=== PATIENT | male | born 1975 | race Hispanic/Latino ===

== ENCOUNTER 2018-08-26 15:56 | Inpatient (IN) | payer SELFPAY ==
[2018-08-26] MEDS ORDERED: NACL 0.9% 1000 ML 1,000 ML IV ONE ×3 (16:34→22:10)
[2018-08-26] MEDS ORDERED: ASPIRIN PO ONE (16:34)
[2018-08-26] MEDS ORDERED: SUBLIMAZE IV ONE (16:34)
[2018-08-26] MEDS ORDERED: ZOFRAN IV ONE ×2 (16:34→20:46)
--- NOTE | 2018-08-26 16:38 | Emergency Department Report ---
HPI - General Chief Complaint: Hyperglycemia Time Seen by Provider: 08/26/18 16:27 - HPI HPI: Room 4 The patient is a 42-year-old male presenting with chief complaint of hyperglycemia and chest pain. The patient states 5 days ago he was bitten by an insect because it all over body. The patient's days ago she became elevated he's been unable to control it despite being compliant with his medication. Patient developed a subjective fever 2 days ago and then today sided chest pain, so something is pushing on his chest. Patient admits to shortness of breath, nausea/vomiting and diaphoresis. The patient currently gives his chest pain a score of 6/10. The patient states his last stress test occurred over 5 years ago Location: [See above] Duration: [See above] Quality: Pushing Severity: [See above] Modifying factors: [see above] Context: [see above] Mode of transportation: [not driving] ED Past Medical Hx - Past Medical History Previous Medical History?: Yes Hx Diabetes: Yes (IDDM) - Surgical History Past Surgical History?: Yes Additional Surgical History: LUE - Family History Family history: no significant - Social History Smoking Status: Current Every Day Smoker (1/2 pack per day) Substance Use Type: None (denies illicit drug use) - Medications Home Medications: Home Medications Medication Instructions Recorded Confirmed Last Taken Type Clopidogrel [Plavix] 75 mg PO QDAY #30 tablet 01/25/13 01/15/18 Unknown Rx Rosuvastatin (Nf) [Crestor] 10 mg PO QHS #30 tablet 01/25/13 01/15/18 Unknown Rx Insulin NPH/Regular [NovoLIN 70/30] 15 unit SUB-Q BIDDIAB #1 vial 01/14/18 01/15/18 01/14/18 22:00 Rx Pregabalin [Lyrica] 75 mg PO BID #60 capsule 01/14/18 01/15/18 Unknown Rx Linezolid [Zyvox] 600 mg PO BID #28 tablet 01/19/18 Unknown Rx ED Review of Systems ROS: Stated complaint: BS/CP Other details as noted in HPI Constitutional: diaphoresis Eyes: denies: eye pain ENT: denies: throat pain Respiratory: shortness of breath Cardiovascular: chest pain Endocrine: no symptoms reported Gastrointestinal: nausea, vomiting Genitourinary: denies: dysuria Musculoskeletal: denies: back pain Neurological: denies: headache Physical Exam - Physical Exam Physical Exam: GENERAL: The patient is well-developed well-nourished male lying on stretcher holding emesis bag appearing to be in mild discomfort. [] HEENT: Normocephalic. Atraumatic. Extraocular motions are intact. Patient has moist mucous membranes. NECK: Supple. Trachea midline CHEST/LUNGS: Clear to auscultation. There is no respiratory distress noted. HEART/CARDIOVASCULAR: Regular. There is no tachycardia. There is no gallop rub or murmur. ABDOMEN: Abdomen is soft, nontender. Patient has normal bowel sounds. There is no abdominal distention. SKIN: There is no rash. There is no edema. There is no diaphoresis. NEURO: The patient is awake, alert, and oriented. The patient is cooperative. The patient has normal speech MUSCULOSKELETAL: There is no evidence of acute injury. ED Medical Decision Making - Lab Data Result diagrams: 08/26/18 17:05 08/26/18 17:05 Laboratory Tests 08/26/18 08/26/18 08/26/18 17:05 17:05 17:05 WBC 13.7 H RBC 5.30 H Hgb 16.6 H Hct 50.9 H MCV 96 H MCH 31 MCHC 33 RDW 14.6 Plt Count 346 Add Manual Diff Complete Total Counted 100 Seg Neutrophils % Airway Controller Seg Neuts % (Manual) 97.0 H Band Neutrophils % 0 Lymphocytes % (Manual) 2.0 L Reactive Lymphs % (Man) 0 Monocytes % (Manual) 1.0 Eosinophils % (Manual) 0 Basophils % (Manual) 0 Metamyelocytes % 0 Myelocytes % 0 Promyelocytes % 0 Blast Cells % 0 Nucleated RBC % Not Reportable Seg Neutrophils # Man 13.3 H Band Neutrophils # 0.0 Lymphocytes # (Manual) 0.3 L Abs React Lymphs (Man) 0.0 Monocytes # (Manual) 0.1 Eosinophils # (Manual) 0.0 Basophils # (Manual) 0.0 Metamyelocytes # 0.0 Myelocytes # 0.0 Promyelocytes # 0.0 Blast Cells # 0.0 WBC Morphology Not Reportable Hypersegmented Neuts Not Reportable Hyposegmented Neuts Not Reportable Hypogranular Neuts Not Reportable Smudge Cells Not Reportable Toxic Granulation Not Reportable Toxic Vacuolation Not Reportable Dohle Bodies Not Reportable Pelger-Huet Anomaly Not Reportable Leelee Rods Not Reportable Platelet Estimate Appears normal Clumped Platelets Not Reportable Plt Clumps, EDTA Not Reportable Large Platelets Not Reportable Giant Platelets Not Reportable Platelet Satelliting Not Reportable Plt Morphology Comment Not Reportable RBC Morphology Normal Dimorphic RBCs Not Reportable Polychromasia Not Reportable Hypochromasia Not Reportable Poikilocytosis Not Reportable Anisocytosis Not Reportable Microcytosis Not Reportable Macrocytosis Not Reportable Spherocytes Not Reportable Pappenheimer Bodies Not Reportable Sickle Cells Not Reportable Target Cells Not Reportable Tear Drop Cells Not Reportable Ovalocytes Not Reportable Helmet Cells Not Reportable [place] Bodies Not Reportable [place] Rings Not Reportable Chetan Cells Not Reportable Bite Cells Not Reportable Crenated Cell Not Reportable Elliptocytes Not Reportable Acanthocytes (Spur) Not Reportable Rouleaux Not Reportable Hemoglobin C Crystals Not Reportable Schistocytes Not Reportable Malaria parasites Not Reportable Drake Bodies Not Reportable Hem Pathologist Commnt No VBG pH 7.190 L* Sodium 125 L Potassium 7.0 H* Chloride 79.6 L Carbon Dioxide 9 L* Anion Gap 43 BUN 56 H Creatinine 1.9 H Estimated GFR 39 BUN/Creatinine Ratio 29 Glucose 753 H* POC Glucose Calcium 9.7 Total Bilirubin 0.50 AST 19 ALT 15 Alkaline Phosphatase 173 H Total Creatine Kinase 59 CK-MB (CK-2) 3.2 CK-MB (CK-2) Rel Index 5.4 H Troponin T < 0.010 Total Protein 8.6 H Albumin 4.3 Albumin/Globulin Ratio 1.0 Lipase 42 08/26/18 17:12 WBC RBC Hgb Hct MCV MCH MCHC RDW Plt Count Add Manual Diff Total Counted Seg Neutrophils % Seg Neuts % (Manual) Band Neutrophils % Lymphocytes % (Manual) Reactive Lymphs % (Man) Monocytes % (Manual) Eosinophils % (Manual) Basophils % (Manual) Metamyelocytes % Myelocytes % Promyelocytes % Blast Cells % Nucleated RBC % Seg Neutrophils # Man Band Neutrophils # Lymphocytes # (Manual) Abs React Lymphs (Man) Monocytes # (Manual) Eosinophils # (Manual) Basophils # (Manual) Metamyelocytes # Myelocytes # Promyelocytes # Blast Cells # WBC Morphology Hypersegmented Neuts Hyposegmented Neuts Hypogranular Neuts Smudge Cells Toxic Granulation Toxic Vacuolation Dohle Bodies Pelger-Huet Anomaly Leelee Rods Platelet Estimate Clumped Platelets Plt Clumps, EDTA Large Platelets Giant Platelets Platelet Satelliting Plt Morphology Comment RBC Morphology Dimorphic RBCs Polychromasia Hypochromasia Poikilocytosis Anisocytosis Microcytosis Macrocytosis Spherocytes Pappenheimer Bodies Sickle Cells Target Cells Tear Drop Cells Ovalocytes Helmet Cells [place] Bodies [place] Rings Chetan Cells Bite Cells Crenated Cell Elliptocytes Acanthocytes (Spur) Rouleaux Hemoglobin C Crystals Schistocytes Malaria parasites Drake Bodies Hem Pathologist Commnt VBG pH Sodium Potassium Chloride Carbon Dioxide Anion Gap BUN Creatinine Estimated GFR BUN/Creatinine Ratio Glucose POC Glucose > 500 H Calcium Total Bilirubin AST ALT Alkaline Phosphatase Total Creatine Kinase CK-MB (CK-2) CK-MB (CK-2) Rel Index Troponin T Total Protein Albumin Albumin/Globulin Ratio Lipase - Radiology Data Radiology results: image reviewed (chest x-ray) interpreted by me: Chest x-ray-no focal infiltrates, no pneumothorax - Differential Diagnosis DKA, ACS, pericarditis Critical care attestation.: If time is entered above; I have spent that time in minutes in the direct care of this critically ill patient, excluding procedure time. ED Disposition Clinical Impression: Chest pain, DKA (diabetic ketoacidoses) Disposition: OP ADMIT IP TO THIS HOSP Is pt being admited?: Yes Does the pt Need Aspirin: No Condition: Fair Instructions: Chest Pain (ED), Diabetic Ketoacidosis (ED) Referrals: CHADD CAMPBELL MD [Primary Care Provider] - 3-5 Days Time of Disposition: 18:04 (hospitalist notified (Dr Hodge))
[2018-08-26 17:18] LABS: Hematocrit 50.9 % (35.5-45.6); Hemoglobin 16.6 gm/dl (11.8-15.2); Mean Corpuscular HGB Conc 33 % (32-34); Mean Corpuscular Volume 96 fl (84-94); Platelet Count 346 K/mm3 (140-440); Red Cell Distribution Width 14.6 % (13.2-15.2)
[2018-08-26 17:48] LABS: Creatine Kinase MB 3.2 ng/mL (0.0-4.0)
[2018-08-26 17:49] LABS: Alanine Aminotransferase 15 units/L (7-56); Albumin 4.3 g/dL (3.9-5); BUN/Creatinine Ratio 29; Blood Urea Nitrogen 56 mg/dL (9-20); Calcium 9.7 mg/dL (8.4-10.2); Hemolysis Index 61
[2018-08-26 18:01] LABS: Basophils % (Manual) 0 % (0.0-1.8); Eosinophils % (Manual) 0 % (0.0-4.3); Total Cells Counted 100
[2018-08-26] MEDS ORDERED: D50W (25GM) Syringe IV PRN (18:01)
[2018-08-26 18:02] LABS: RBC Morphology Normal
--- NOTE | 2018-08-26 18:09 | XRay Report ---
PROCEDURE: XR CHEST 1V AP TECHNIQUE: Chest radiograph single view. HISTORY: chest pain COMPARISONS: X-ray chest and CT angiogram chest dated January 15, 2018. . FINDINGS: There is no evidence of focal infiltrate, pneumothorax or pleural fluid collection. The cardiac silhouette is normal size. The thoracic aorta is unremarkable. The bony structures are notable for dextrocurvature of the thoracic spine. IMPRESSION: 1. No evidence of an acute pulmonary process. This document is electronically signed by Kalyani Anaya MD., August 26 2018 06:07:15 PM ET
[2018-08-26 19:35] LABS: Bilirubin,Urine NEG (Negative); Blood,Urine NEG (Negative); Color,Urine Straw (Yellow); Mucus,Urine FEW /HPF; Protein,Urine <15 mg/dL mg/dL (Negative); RBC,Urine < 1.0 /HPF (0.0-6.0); Urobilinogen,Urine < 2.0 mg/dL (<2.0); WBC,Urine < 1.0 /HPF (0.0-6.0)
[2018-08-26 20:03] LABS: Calcium 9.3 mg/dL (8.4-10.2)
[2018-08-26] MEDS ORDERED: REGLAN IV ONE (20:50)
[2018-08-26] MEDS ORDERED: REGLAN ONE (20:53)
[2018-08-26] MEDS: HumuLIN R 100 UNITS in NACL 0.9% 99 ML IV SCH (21:01)
[2018-08-26] MEDS ORDERED: PERCOCET 5/325 PO PRN (21:27)
[2018-08-26] MEDS ORDERED: TYLENOL PO PRN (21:27)
[2018-08-26] MEDS ORDERED: MORPHINE IV PRN (21:27)
[2018-08-26] MEDS ORDERED: SODIUM CHLORIDE FLUSH SYRINGE 10 ML IV PRN (21:27)
[2018-08-26] MEDS ORDERED: ZOFRAN IV PRN ×2 (21:27→23:18)
[2018-08-26] MEDS ORDERED: NACL 0.9% 1000 ML 1,000 ML ONE (21:34)
[2018-08-26 21:37] LABS: Calcium 9.2 mg/dL (8.4-10.2)
[2018-08-26] MEDS ORDERED: NACL 0.9% 1000 ML 2,000 ML IV ONE (21:46)
[2018-08-26] MEDS ORDERED: NACL 0.9% 1000 ML 1,000 ML IV SCH (22:00)
[2018-08-26] MEDS: SODIUM CHLORIDE FLUSH SYRINGE 10 ML IV SCH (22:08)
[2018-08-26 22:35] LABS: Calcium 8.8 mg/dL (8.4-10.2)
--- NOTE | 2018-08-26 22:56 | History and Physical Report ---
History of Present Illness Date of examination: 08/26/18 Date of admission: 08/26/18 21:27 Chief complaint: High blood sugar and chest pain History of present illness: Patient is a 42-year-old male with history of IDDM who presented with high blood glucose. Patient stated that today, his glucometer started reading very high glucose level, which he could not control despite taking his medications. He also complained of few hours history of left-sided chest pain. He described it as sharp in character, rated 7-8/10, nonradiating and constant in duration. Pain is worse with deep breaths and no known relieving factors. He has associated shortness of breath, palpitation, diaphoresis, cough productive of greenish sputum, fever without chills, nausea with vomiting times multiple episodes, headaches, lightheadedness and generalized weakness. No leg swelling, orthopnea, PND, syncope or loss of consciousness. His last stress test was about 5 years ago which was normal. Past History Past Medical History: diabetes, hypertension, other (diabetic neuropathy) Past Surgical History: Other (right arm surgery) Social history: smoking (patient has 10 years history of cigarette smoking. He currently smokes a pack every few days. He denies alcohol or illicit drug use) Family history: CAD (father had heart attack in his 60s), diabetes (aunt), hypertension (father) Medications and Allergies Allergies Allergy/AdvReac Type Severity Reaction Status Date / Time No Known Allergies Allergy Unverified 01/11/18 02:12 Home Medications Medication Instructions Recorded Confirmed Last Taken Type Insulin Detemir [Levemir VIAL] 0 unit SQ BID 08/26/18 08/26/18 Unknown History Insulin Glargine [Lantus] 40 unit SUB-Q BID 08/26/18 08/26/18 Unknown History Insulin Regular, Human [Humulin R] 1 dose SQ ACHS 08/26/18 08/26/18 Unknown History Active Meds: Active Medications Acetaminophen (Tylenol) 650 mg PO Q4H PRN PRN Reason: Pain MILD(1-3)/Fever >100.5/CHE Aspirin (Aspirin) 325 mg PO QDAY VIELKA Dextrose (D50w (25gm) Syringe) 0 ml IV ONCE PRN PRN Reason: Hypoglycemia Heparin Sodium (Porcine) (Heparin) 5,000 unit SUB-Q Q8HR VIELKA Insulin Human Regular 100 (units/ Sodium Chloride) 100 mls @ 7 mls/hr IV TITR VIELKA; Protocol Last Titration: 08/26/18 22:55 Dose: 11 units/hr, 11 mls/hr Documented by: Sodium Chloride (Nacl 0.9% 1000 Ml) 1,000 mls @ 250 mls/hr IV DIRECT VIELKA Sodium Chloride (Nacl 0.9% 1000 Ml) 2,000 mls @ 999 mls/hr IV ONCE ONE Stop: 08/26/18 23:46 Last Admin: 08/26/18 22:01 Dose: 999 mls/hr Documented by: Sodium Chloride (Nacl 0.9% 1000 Ml) 1,000 mls @ 999 mls/hr IV BOLUS ONE Stop: 08/26/18 23:10 Last Admin: 08/26/18 22:56 Dose: 999 mls/hr Documented by: Sodium Chloride (Nacl 0.9% 1000 Ml) 1,000 mls @ 999 mls/hr IV BOLUS ONE Stop: 08/26/18 23:10 Morphine Sulfate (Morphine) 2 mg IV Q4H PRN PRN Reason: Pain , Severe (7-10) Ondansetron HCl (Zofran) 4 mg IV Q8H PRN PRN Reason: Nausea And Vomiting Oxycodone/Acetaminophen (Percocet 5/325) 1 tab PO Q6H PRN PRN Reason: Pain, Moderate (4-6) Sodium Chloride (Sodium Chloride Flush Syringe 10 Ml) 10 ml IV BID VIELKA Last Admin: 08/26/18 22:08 Dose: 10 ml Documented by: Sodium Chloride (Sodium Chloride Flush Syringe 10 Ml) 10 ml IV PRN PRN PRN Reason: LINE FLUSH Review of Systems All systems: negative (except as documented in the HPI, 14 point system reviewed were negative) Exam - Constitutional Vitals: Temp Pulse Resp BP Pulse Ox 97.9 F 121 H 16 104/38 100 08/26/18 19:15 08/26/18 22:30 08/26/18 22:30 08/26/18 22:30 08/26/18 22:30 General appearance: Present: no acute distress, well-nourished - EENT Eyes: Present: PERRL, EOM intact ENT: hearing intact, clear oral mucosa - Neck Neck: Present: supple, normal ROM - Respiratory Respiratory effort: normal Respiratory: bilateral: CTA - Cardiovascular Rhythm: regular (with tachycardia) Heart Sounds: Present: S1 & S2. Absent: rub, click - Extremities Extremities: pulses symmetrical, No edema Peripheral Pulses: within normal limits - Abdominal General gastrointestinal: Present: soft, tender (RLQ, LLQ and epigastrium), non- distended, normal bowel sounds Male genitourinary: Present: deferred - Integumentary Integumentary: Present: clear, warm, dry - Musculoskeletal Musculoskeletal: gait normal, strength equal bilaterally - Psychiatric Psychiatric: appropriate mood/affect, intact judgment & insight - Neurologic Neurologic: CNII-XII intact, moves all extremities Results - Labs CBC & Chem 7: 08/26/18 17:05 08/26/18 21:51 Labs: Laboratory Last Values WBC 13.7 K/mm3 (4.5-11.0) H 08/26/18 17:05 RBC 5.30 M/mm3 (3.65-5.03) H 08/26/18 17:05 Hgb 16.6 gm/dl (11.8-15.2) H 08/26/18 17:05 Hct 50.9 % (35.5-45.6) H 08/26/18 17:05 MCV 96 fl (84-94) H 08/26/18 17:05 MCH 31 pg (28-32) 08/26/18 17:05 MCHC 33 % (32-34) 08/26/18 17:05 RDW 14.6 % (13.2-15.2) 08/26/18 17:05 Plt Count 346 K/mm3 (140-440) 08/26/18 17:05 Add Manual Diff Complete 08/26/18 17:05 Total Counted 100 08/26/18 17:05 Seg Neutrophils % Recruitment Advertising Manager 08/26/18 17:05 Seg Neuts % (Manual) 97.0 % (40.0-70.0) H 08/26/18 17:05 0 % 08/26/18 17:05 2.0 % (13.4-35.0) L 08/26/18 17:05 Reactive Lymphs % (Man) 0 % 08/26/18 17:05 1.0 % (0.0-7.3) 08/26/18 17:05 0 % (0.0-4.3) 08/26/18 17:05 0 % (0.0-1.8) 08/26/18 17:05 0 % 08/26/18 17:05 0 % 08/26/18 17:05 0 % 08/26/18 17:05 0 % 08/26/18 17:05 Nucleated RBC % Not Reportable 08/26/18 17:05 Seg Neutrophils # Man 13.3 K/mm3 (1.8-7.7) H 08/26/18 17:05 Band Neutrophils # 0.0 K/mm3 08/26/18 17:05 0.3 K/mm3 (1.2-5.4) L 08/26/18 17:05 Abs React Lymphs (Man) 0.0 K/mm3 08/26/18 17:05 0.1 K/mm3 (0.0-0.8) 08/26/18 17:05 0.0 K/mm3 (0.0-0.4) 08/26/18 17:05 0.0 K/mm3 (0.0-0.1) 08/26/18 17:05 0.0 K/mm3 08/26/18 17:05 0.0 K/mm3 08/26/18 17:05 0.0 K/mm3 08/26/18 17:05 Blast Cells # 0.0 K/mm3 08/26/18 17:05 WBC Morphology Not Reportable 08/26/18 17:05 Hypersegmented Neuts Not Reportable 08/26/18 17:05 Hyposegmented Neuts Not Reportable 08/26/18 17:05 Hypogranular Neuts Not Reportable 08/26/18 17:05 Not Reportable 08/26/18 17:05 Not Reportable 08/26/18 17:05 Not Reportable 08/26/18 17:05 Not Reportable 08/26/18 17:05 Not Reportable 08/26/18 17:05 Not Reportable 08/26/18 17:05 Appears normal 08/26/18 17:05 Not Reportable 08/26/18 17:05 Plt Clumps, EDTA Not Reportable 08/26/18 17:05 Not Reportable 08/26/18 17:05 Not Reportable 08/26/18 17:05 Not Reportable 08/26/18 17:05 Plt Morphology Comment Not Reportable 08/26/18 17:05 RBC Morphology Normal 08/26/18 17:05 Dimorphic RBCs Not Reportable 08/26/18 17:05 Not Reportable 08/26/18 17:05 Not Reportable 08/26/18 17:05 Not Reportable 08/26/18 17:05 Not Reportable 08/26/18 17:05 Not Reportable 08/26/18 17:05 Not Reportable 08/26/18 17:05 Not Reportable 08/26/18 17:05 Not Reportable 08/26/18 17:05 Not Reportable 08/26/18 17:05 Not Reportable 08/26/18 17:05 Not Reportable 08/26/18 17:05 Not Reportable 08/26/18 17:05 Not Reportable 08/26/18 17:05 Not Reportable 08/26/18 17:05 Not Reportable 08/26/18 17:05 Not Reportable 08/26/18 17:05 Not Reportable 08/26/18 17:05 Not Reportable 08/26/18 17:05 Not Reportable 08/26/18 17:05 Acanthocytes (Spur) Not Reportable 08/26/18 17:05 Rouleaux Not Reportable 08/26/18 17:05 Not Reportable 08/26/18 17:05 Not Reportable 08/26/18 17:05 Not Reportable 08/26/18 17:05 Not Reportable 08/26/18 17:05 Hem Pathologist Commnt No 08/26/18 17:05 VBG pH 7.190 (7.320-7.420) L* 08/26/18 17:05 Sodium 124 mmol/L (137-145) L 08/26/18 21:51 Potassium 7.1 mmol/L (3.6-5.0) H* 08/26/18 21:51 Chloride 79.7 mmol/L (98-107) L 08/26/18 21:51 Carbon Dioxide 7 mmol/L (22-30) L* 08/26/18 21:51 44 mmol/L 08/26/18 21:51 BUN 60 mg/dL (9-20) H 08/26/18 21:51 2.2 mg/dL (0.8-1.5) H 08/26/18 21:51 Estimated GFR 33 ml/min 08/26/18 21:51 27 % 08/26/18 21:51 Glucose 842 mg/dL (75-100) H* 08/26/18 21:51 POC Glucose > 500 (70-105) H 08/26/18 22:13 Calcium 8.8 mg/dL (8.4-10.2) 08/26/18 21:51 Phosphorus 6.60 mg/dL (2.5-4.5) H 08/26/18 19:17 Magnesium 2.50 mg/dL (1.7-2.3) H 08/26/18 19:17 0.50 mg/dL (0.1-1.2) 08/26/18 17:05 AST 19 units/L (5-40) 08/26/18 17:05 ALT 15 units/L (7-56) 08/26/18 17:05 173 units/L (35-129) H 08/26/18 17:05 59 units/L (55-170) 08/26/18 17:05 CK-MB (CK-2) 3.2 ng/mL (0.0-4.0) 08/26/18 17:05 CK-MB (CK-2) Rel Index 5.4 (0-4) H 08/26/18 17:05 < 0.010 ng/mL (0.00-0.029) 08/26/18 17:05 8.6 g/dL (6.3-8.2) H 08/26/18 17:05 4.3 g/dL (3.9-5) 08/26/18 17:05 1.0 % 08/26/18 17:05 42 units/L (13-60) 08/26/18 17:05 Straw (Yellow) 08/26/18 18:50 Clear (Clear) 08/26/18 18:50 5.0 (5.0-7.0) 08/26/18 18:50 Ur Specific [place] 1.021 (1.003-1.030) 08/26/18 18:50 <15 mg/dl mg/dL (Negative) 08/26/18 18:50 >=500 mg/dL (Negative) 08/26/18 18:50 80 mg/dL (Negative) 08/26/18 18:50 Neg (Negative) 08/26/18 18:50 Neg (Negative) 08/26/18 18:50 Neg (Negative) 08/26/18 18:50 < 2.0 mg/dL (<2.0) 08/26/18 18:50 Ur Leukocyte Esterase Neg (Negative) 08/26/18 18:50 < 1.0 /HPF (0.0-6.0) 08/26/18 18:50 < 1.0 /HPF (0.0-6.0) 08/26/18 18:50 Few /HPF 08/26/18 18:50 Assessment and Plan Assessment and plan: DKA -Admit to the ICU on DKA protocol Severe hyperkalemia -Will do EKG -On aggressive IV fluid, will monitor potassium level -We'll consult nephrology if no improvement WILMER -Likely vasomotor nephropathy secondary to dehydration -On IV fluid, will monitor creatinine level Chest pain, rule out ACS -On chest pain pathway -Consider stress test when DKA resolves Hypotension -On IV fluid, will monitor blood pressure Leukocytosis with elevated H&H -Likely hemoconcentration due to dehydration -No evidence of acute infection -On IV fluid, will monitor levels Intractable nausea and vomiting -On antiemetics and IV fluid DVT prophylaxis with heparin Disposition: I spent 45 minutes providing critical care to this seriously ill patient who requires frequent reassessments of his metabolic profile and cardiovascular status.
[2018-08-26] MEDS ORDERED: PHENERGAN PR PRN (23:18)
[2018-08-27 01:42] LABS: Calcium 8.5 mg/dL (8.4-10.2)
[2018-08-27] MEDS: D5/0.45NS 1,000 ML IV SCH ×2 (05:08→13:05)
[2018-08-27] MEDS: HEPARIN SUB-Q SCH ×2 (06:04→14:01)
[2018-08-27 08:19] LABS: Calcium 8.6 mg/dL (8.4-10.2)
--- NOTE | 2018-08-27 09:07 | Progress Note ---
Assessment and Plan Assessment and plan: DKA -Admitted to the ICU on DKA protocol -Continuye to monitor serial BMP, anion gap Severe hyperkalemia Now resolved WILMER -Likely vasomotor nephropathy secondary to dehydration -On IV fluid, will monitor creatinine level Chest pain, rule out ACS -On chest pain pathway -Will do stress test when DKA resolves Hypotension -On IV fluid, will monitor blood pressure SIRS Leukocytosis with elevated H&H -Likely hemoconcentration due to dehydration -No evidence of acute infection -On IV fluid, will monitor levels Intractable nausea and vomiting -On antiemetics and IV fluid DVT prophylaxis with heparin History Interval history: Patient with DKA, on Insulin drip, iv fluids Asking about food Hospitalist Physical - Physical exam Narrative exam: Gen: Not in acute distress, lying in bed, HEENT: Normocephalic, atraumatic Neck: supple, no JVD Heart: S1 and S2 reg, no murmurs, rubs or gallop Lungs: Clear, no crackles, no wheeze Abd: soft, non tender, non distended, normal BS Ext: No edema, no clubbing, no cyanosis, Neuro: Drowsy, moves all ext, non focal Psych:Normal mood - Constitutional Vitals: Temp Pulse Resp BP Pulse Ox 98.9 F 87 16 116/67 97 08/27/18 08:00 08/27/18 08:00 08/27/18 08:00 08/27/18 08:00 08/27/18 08:00 General appearance: Present: no acute distress, well-nourished Results - Labs CBC & Chem 7: 08/26/18 17:05 08/27/18 09:16 Labs: Laboratory Last Values WBC 13.7 K/mm3 (4.5-11.0) H 08/26/18 17:05 RBC 5.30 M/mm3 (3.65-5.03) H 08/26/18 17:05 Hgb 16.6 gm/dl (11.8-15.2) H 08/26/18 17:05 Hct 50.9 % (35.5-45.6) H 08/26/18 17:05 MCV 96 fl (84-94) H 08/26/18 17:05 MCH 31 pg (28-32) 08/26/18 17:05 MCHC 33 % (32-34) 08/26/18 17:05 RDW 14.6 % (13.2-15.2) 08/26/18 17:05 Plt Count 346 K/mm3 (140-440) 08/26/18 17:05 Add Manual Diff Complete 08/26/18 17:05 Total Counted 100 08/26/18 17:05 Seg Neutrophils % Scheduling Coordinator 08/26/18 17:05 Seg Neuts % (Manual) 97.0 % (40.0-70.0) H 08/26/18 17:05 0 % 08/26/18 17:05 2.0 % (13.4-35.0) L 08/26/18 17:05 Reactive Lymphs % (Man) 0 % 08/26/18 17:05 1.0 % (0.0-7.3) 08/26/18 17:05 0 % (0.0-4.3) 08/26/18 17:05 0 % (0.0-1.8) 08/26/18 17:05 0 % 08/26/18 17:05 0 % 08/26/18 17:05 0 % 08/26/18 17:05 0 % 08/26/18 17:05 Nucleated RBC % Not Reportable 08/26/18 17:05 Seg Neutrophils # Man 13.3 K/mm3 (1.8-7.7) H 08/26/18 17:05 Band Neutrophils # 0.0 K/mm3 08/26/18 17:05 0.3 K/mm3 (1.2-5.4) L 08/26/18 17:05 Abs React Lymphs (Man) 0.0 K/mm3 08/26/18 17:05 0.1 K/mm3 (0.0-0.8) 08/26/18 17:05 0.0 K/mm3 (0.0-0.4) 08/26/18 17:05 0.0 K/mm3 (0.0-0.1) 08/26/18 17:05 0.0 K/mm3 08/26/18 17:05 0.0 K/mm3 08/26/18 17:05 0.0 K/mm3 08/26/18 17:05 Blast Cells # 0.0 K/mm3 08/26/18 17:05 WBC Morphology Not Reportable 08/26/18 17:05 Hypersegmented Neuts Not Reportable 08/26/18 17:05 Hyposegmented Neuts Not Reportable 08/26/18 17:05 Hypogranular Neuts Not Reportable 08/26/18 17:05 Not Reportable 08/26/18 17:05 Not Reportable 08/26/18 17:05 Not Reportable 08/26/18 17:05 Not Reportable 08/26/18 17:05 Not Reportable 08/26/18 17:05 Not Reportable 08/26/18 17:05 Appears normal 08/26/18 17:05 Not Reportable 08/26/18 17:05 Plt Clumps, EDTA Not Reportable 08/26/18 17:05 Not Reportable 08/26/18 17:05 Not Reportable 08/26/18 17:05 Not Reportable 08/26/18 17:05 Plt Morphology Comment Not Reportable 08/26/18 17:05 RBC Morphology Normal 08/26/18 17:05 Dimorphic RBCs Not Reportable 08/26/18 17:05 Not Reportable 08/26/18 17:05 Not Reportable 08/26/18 17:05 Not Reportable 08/26/18 17:05 Not Reportable 08/26/18 17:05 Not Reportable 08/26/18 17:05 Not Reportable 08/26/18 17:05 Not Reportable 08/26/18 17:05 Not Reportable 08/26/18 17:05 Not Reportable 08/26/18 17:05 Not Reportable 08/26/18 17:05 Not Reportable 08/26/18 17:05 Not Reportable 08/26/18 17:05 Not Reportable 08/26/18 17:05 Not Reportable 08/26/18 17:05 Not Reportable 08/26/18 17:05 Not Reportable 08/26/18 17:05 Not Reportable 08/26/18 17:05 Not Reportable 08/26/18 17:05 Not Reportable 08/26/18 17:05 Acanthocytes (Spur) Not Reportable 08/26/18 17:05 Rouleaux Not Reportable 08/26/18 17:05 Not Reportable 08/26/18 17:05 Not Reportable 08/26/18 17:05 Not Reportable 08/26/18 17:05 Not Reportable 08/26/18 17:05 Hem Pathologist Commnt No 08/26/18 17:05 VBG pH 7.190 (7.320-7.420) L* 08/26/18 17:05 Sodium 144 mmol/L (137-145) 08/27/18 07:35 Potassium 4.4 mmol/L (3.6-5.0) 08/27/18 07:35 Chloride 60.0 mmol/L (98-107) L 08/27/18 07:35 Carbon Dioxide 20 mmol/L (22-30) L D 08/27/18 07:35 68 mmol/L 08/27/18 07:35 BUN 46 mg/dL (9-20) H 08/27/18 07:35 1.6 mg/dL (0.8-1.5) H 08/27/18 07:35 Estimated GFR 47 ml/min 08/27/18 07:35 29 % 08/27/18 07:35 Glucose 116 mg/dL (75-100) H 08/27/18 07:35 POC Glucose 132 (70-105) H 08/27/18 08:30 Calcium 8.6 mg/dL (8.4-10.2) 08/27/18 07:35 Phosphorus 6.60 mg/dL (2.5-4.5) H 08/26/18 19:17 Magnesium 2.50 mg/dL (1.7-2.3) H 08/26/18 19:17 0.50 mg/dL (0.1-1.2) 08/26/18 17:05 AST 19 units/L (5-40) 08/26/18 17:05 ALT 15 units/L (7-56) 08/26/18 17:05 173 units/L (35-129) H 08/26/18 17:05 59 units/L (55-170) 08/26/18 17:05 CK-MB (CK-2) 3.2 ng/mL (0.0-4.0) 08/26/18 17:05 CK-MB (CK-2) Rel Index 5.4 (0-4) H 08/26/18 17:05 < 0.010 ng/mL (0.00-0.029) 08/27/18 07:35 8.6 g/dL (6.3-8.2) H 08/26/18 17:05 4.3 g/dL (3.9-5) 08/26/18 17:05 1.0 % 08/26/18 17:05 42 units/L (13-60) 08/26/18 17:05 Straw (Yellow) 08/26/18 18:50 Clear (Clear) 08/26/18 18:50 5.0 (5.0-7.0) 08/26/18 18:50 Ur Specific [place] 1.021 (1.003-1.030) 08/26/18 18:50 <15 mg/dl mg/dL (Negative) 08/26/18 18:50 >=500 mg/dL (Negative) 08/26/18 18:50 80 mg/dL (Negative) 08/26/18 18:50 Neg (Negative) 08/26/18 18:50 Neg (Negative) 08/26/18 18:50 Neg (Negative) 08/26/18 18:50 < 2.0 mg/dL (<2.0) 08/26/18 18:50 Ur Leukocyte Esterase Neg (Negative) 08/26/18 18:50 < 1.0 /HPF (0.0-6.0) 08/26/18 18:50 < 1.0 /HPF (0.0-6.0) 08/26/18 18:50 Few /HPF 08/26/18 18:50 Active Medications - Current Medications Current Medications: Generic Name Dose Route Start Last Admin Trade Name Nuraq PRN Reason Stop Dose Admin Acetaminophen 650 mg 08/26/18 21:27 Tylenol PO Q4H PRN Pain MILD(1-3)/Fever >100.5/CHE Aspirin 325 mg 08/27/18 10:00 Aspirin PO QDAY VIELKA Dextrose 0 ml 08/26/18 18:01 D50w (25gm) Syringe IV ONCE PRN Hypoglycemia Heparin Sodium (Porcine) 5,000 unit 08/27/18 06:00 08/27/18 06:04 Heparin SUB-Q 5,000 unit Q8HR VIELKA Administration Insulin Human Regular 100 100 mls @ 7 mls/hr 08/26/18 19:00 08/27/18 08:00 units/ Sodium Chloride IV 2 units/hr TITR VIELKA 2 mls/hr Titration Protocol 7 UNITS/HR Dextrose/Sodium Chloride 1,000 mls @ 150 mls/hr 08/27/18 05:00 08/27/18 05:08 D5/0.45ns IV 150 mls/hr DIRECT VIELKA Administration Morphine Sulfate 2 mg 08/26/18 21:27 Morphine IV Q4H PRN Pain , Severe (7-10) Ondansetron HCl 4 mg 08/26/18 23:18 Zofran IV Q4H PRN Nausea And Vomiting Oxycodone/Acetaminophen 1 tab 08/26/18 21:27 Percocet 5/325 PO Q6H PRN Pain, Moderate (4-6) Promethazine HCl 25 mg 08/26/18 23:18 Phenergan [place] Q6H PRN Nausea And Vomiting Sodium Chloride 10 ml 08/26/18 22:00 08/26/18 22:08 Sodium Chloride Flush Syringe 10 Ml IV 10 ml BID VIELKA Administration Sodium Chloride 10 ml 08/26/18 21:27 Sodium Chloride Flush Syringe 10 Ml IV PRN PRN LINE FLUSH
[2018-08-27] MEDS: ASPIRIN PO SCH (09:39)
[2018-08-27] MEDS ORDERED: LOVENOX SUB-Q SCH (10:00)
[2018-08-27 10:02] LABS: Calcium 8.4 mg/dL (8.4-10.2)
[2018-08-27] MEDS: SODIUM CHLORIDE FLUSH SYRINGE 10 ML IV SCH (10:43)
[2018-08-27] MEDS: HumuLIN R 100 UNITS in NACL 0.9% 99 ML IV SCH (10:44)
--- NOTE | 2018-08-27 13:42 | Consultation ---
History of Present Illness - Reason for Consult Consult date: 08/27/18 DKA Requesting physician: BONNIE CEE - History of Present Illness 42 y/o male admitted with DKA. BS greater than 800 on admit. Anion gap now is 17. Due for next draw at 14:00 Past History Past Medical History: diabetes, hypertension, other (diabetic neuropathy) Past Surgical History: Other (right arm surgery) Social history: smoking (patient has 10 years history of cigarette smoking. He currently smokes a pack every few days. He denies alcohol or illicit drug use) Family history: CAD (father had heart attack in his 60s), diabetes (aunt), hypertension (father) Medications and Allergies Allergies Allergy/AdvReac Type Severity Reaction Status Date / Time No Known Allergies Allergy Unverified 01/11/18 02:12 Home Medications Medication Instructions Recorded Confirmed Last Taken Type Insulin Detemir [Levemir VIAL] 0 unit SQ BID 08/26/18 08/26/18 Unknown History Insulin Glargine [Lantus] 40 unit SUB-Q BID 08/26/18 08/26/18 Unknown History Insulin Regular, Human [Humulin R] 1 dose SQ ACHS 08/26/18 08/26/18 Unknown History Active Meds: Active Medications Acetaminophen (Tylenol) 650 mg PO Q4H PRN PRN Reason: Pain MILD(1-3)/Fever >100.5/CHE Aspirin (Aspirin) 325 mg PO QDAY VIELKA Last Admin: 08/27/18 09:39 Dose: 325 mg Documented by: Dextrose (D50w (25gm) Syringe) 0 ml IV ONCE PRN PRN Reason: Hypoglycemia Heparin Sodium (Porcine) (Heparin) 5,000 unit SUB-Q Q8HR VIELKA Last Admin: 08/27/18 06:04 Dose: 5,000 unit Documented by: Insulin Human Regular 100 (units/ Sodium Chloride) 100 mls @ 7 mls/hr IV TITR VIELKA; Protocol Last Titration: 08/27/18 12:37 Dose: 3 units/hr, 3 mls/hr Documented by: Dextrose/Sodium Chloride (D5/0.45ns) 1,000 mls @ 150 mls/hr IV DIRECT VIELKA Last Admin: 08/27/18 13:05 Dose: 150 mls/hr Documented by: Morphine Sulfate (Morphine) 2 mg IV Q4H PRN PRN Reason: Pain , Severe (7-10) Ondansetron HCl (Zofran) 4 mg IV Q4H PRN PRN Reason: Nausea And Vomiting Oxycodone/Acetaminophen (Percocet 5/325) 1 tab PO Q6H PRN PRN Reason: Pain, Moderate (4-6) Last Admin: 08/27/18 09:39 Dose: 1 tab Documented by: Promethazine HCl (Phenergan) 25 mg MI Q6H PRN PRN Reason: Nausea And Vomiting Sodium Chloride (Sodium Chloride Flush Syringe 10 Ml) 10 ml IV BID VIELKA Last Admin: 08/27/18 10:43 Dose: 10 ml Documented by: Sodium Chloride (Sodium Chloride Flush Syringe 10 Ml) 10 ml IV PRN PRN PRN Reason: LINE FLUSH Review of Systems All systems: negative Exam - Constitutional Vitals: Temp Pulse Resp BP Pulse Ox 98.8 F 72 13 112/57 100 08/27/18 12:00 08/27/18 13:10 08/27/18 13:10 08/27/18 13:10 08/27/18 13:10 General appearance: Present: no acute distress, well-nourished - EENT Eyes: Present: PERRL, EOM intact ENT: hearing intact, clear oral mucosa - Neck Neck: Present: supple, normal ROM - Respiratory Respiratory effort: normal Respiratory: bilateral: CTA Results - Labs CBC & Chem 7: 08/26/18 17:05 08/27/18 09:16 Labs: Abnormal lab results 08/26/18 08/26/18 08/26/18 Range/Units 17:05 17:05 17:05 WBC 13.7 H (4.5-11.0) K/mm3 RBC 5.30 H (3.65-5.03) M/mm3 Hgb 16.6 H (11.8-15.2) gm/dl Hct 50.9 H (35.5-45.6) % MCV 96 H (84-94) fl Seg Neuts % (Manual) 97.0 H (40.0-70.0) % Lymphocytes % (Manual) 2.0 L (13.4-35.0) % Seg Neutrophils # Man 13.3 H (1.8-7.7) K/mm3 Lymphocytes # (Manual) 0.3 L (1.2-5.4) K/mm3 VBG pH 7.190 L* (7.320-7.420) Sodium 125 L (137-145) mmol/L Potassium 7.0 H* (3.6-5.0) mmol/L Chloride 79.6 L (98-107) mmol/L Carbon Dioxide 9 L* (22-30) mmol/L BUN 56 H (9-20) mg/dL Creatinine 1.9 H (0.8-1.5) mg/dL Glucose 753 H* (75-100) mg/dL POC Glucose (70-105) Phosphorus (2.5-4.5) mg/dL Magnesium (1.7-2.3) mg/dL Alkaline Phosphatase 173 H (35-129) units/L CK-MB (CK-2) Rel Index 5.4 H (0-4) Total Protein 8.6 H (6.3-8.2) g/dL 08/26/18 08/26/18 08/26/18 Range/Units 17:12 19:17 19:17 WBC (4.5-11.0) K/mm3 RBC (3.65-5.03) M/mm3 Hgb (11.8-15.2) gm/dl Hct (35.5-45.6) % MCV (84-94) fl Seg Neuts % (Manual) (40.0-70.0) % Lymphocytes % (Manual) (13.4-35.0) % Seg Neutrophils # Man (1.8-7.7) K/mm3 Lymphocytes # (Manual) (1.2-5.4) K/mm3 VBG pH (7.320-7.420) Sodium 126 L (137-145) mmol/L Potassium 6.6 H* (3.6-5.0) mmol/L Chloride 81.1 L (98-107) mmol/L Carbon Dioxide 7 L* (22-30) mmol/L BUN 59 H (9-20) mg/dL Creatinine 2.0 H (0.8-1.5) mg/dL Glucose 803 H* (75-100) mg/dL POC Glucose > 500 H (70-105) Phosphorus 6.60 H (2.5-4.5) mg/dL Magnesium 2.50 H (1.7-2.3) mg/dL Alkaline Phosphatase (35-129) units/L CK-MB (CK-2) Rel Index (0-4) Total Protein (6.3-8.2) g/dL 08/26/18 08/26/18 08/26/18 Range/Units 20:48 21:51 22:13 WBC (4.5-11.0) K/mm3 RBC (3.65-5.03) M/mm3 Hgb (11.8-15.2) gm/dl Hct (35.5-45.6) % MCV (84-94) fl Seg Neuts % (Manual) (40.0-70.0) % Lymphocytes % (Manual) (13.4-35.0) % Seg Neutrophils # Man (1.8-7.7) K/mm3 Lymphocytes # (Manual) (1.2-5.4) K/mm3 VBG pH (7.320-7.420) Sodium 129 L 124 L (137-145) mmol/L Potassium 7.1 H* 7.1 H* (3.6-5.0) mmol/L Chloride 83.5 L 79.7 L (98-107) mmol/L Carbon Dioxide 7 L* 7 L* (22-30) mmol/L BUN 61 H 60 H (9-20) mg/dL Creatinine 2.1 H 2.2 H (0.8-1.5) mg/dL Glucose 819 H* 842 H* (75-100) mg/dL POC Glucose > 500 H (70-105) Phosphorus (2.5-4.5) mg/dL Magnesium (1.7-2.3) mg/dL Alkaline Phosphatase (35-129) units/L CK-MB (CK-2) Rel Index (0-4) Total Protein (6.3-8.2) g/dL 08/26/18 08/27/18 08/27/18 Range/Units 22:46 00:05 01:06 WBC (4.5-11.0) K/mm3 RBC (3.65-5.03) M/mm3 Hgb (11.8-15.2) gm/dl Hct (35.5-45.6) % MCV (84-94) fl Seg Neuts % (Manual) (40.0-70.0) % Lymphocytes % (Manual) (13.4-35.0) % Seg Neutrophils # Man (1.8-7.7) K/mm3 Lymphocytes # (Manual) (1.2-5.4) K/mm3 VBG pH (7.320-7.420) Sodium (137-145) mmol/L Potassium (3.6-5.0) mmol/L Chloride (98-107) mmol/L Carbon Dioxide 12 L (22-30) mmol/L BUN 56 H (9-20) mg/dL Creatinine 2.1 H (0.8-1.5) mg/dL Glucose 712 H* 409 H (75-100) mg/dL POC Glucose 447 H (70-105) Phosphorus (2.5-4.5) mg/dL Magnesium (1.7-2.3) mg/dL Alkaline Phosphatase (35-129) units/L CK-MB (CK-2) Rel Index (0-4) Total Protein (6.3-8.2) g/dL 08/27/18 08/27/18 08/27/18 Range/Units 01:09 02:09 03:03 WBC (4.5-11.0) K/mm3 RBC (3.65-5.03) M/mm3 Hgb (11.8-15.2) gm/dl Hct (35.5-45.6) % MCV (84-94) fl Seg Neuts % (Manual) (40.0-70.0) % Lymphocytes % (Manual) (13.4-35.0) % Seg Neutrophils # Man (1.8-7.7) K/mm3 Lymphocytes # (Manual) (1.2-5.4) K/mm3 VBG pH (7.320-7.420) Sodium (137-145) mmol/L Potassium (3.6-5.0) mmol/L Chloride (98-107) mmol/L Carbon Dioxide (22-30) mmol/L BUN (9-20) mg/dL Creatinine (0.8-1.5) mg/dL Glucose (75-100) mg/dL POC Glucose 413 H 323 H 266 H (70-105) Phosphorus (2.5-4.5) mg/dL Magnesium (1.7-2.3) mg/dL Alkaline Phosphatase (35-129) units/L CK-MB (CK-2) Rel Index (0-4) Total Protein (6.3-8.2) g/dL 08/27/18 08/27/18 08/27/18 Range/Units 04:09 05:09 06:04 WBC (4.5-11.0) K/mm3 RBC (3.65-5.03) M/mm3 Hgb (11.8-15.2) gm/dl Hct (35.5-45.6) % MCV (84-94) fl Seg Neuts % (Manual) (40.0-70.0) % Lymphocytes % (Manual) (13.4-35.0) % Seg Neutrophils # Man (1.8-7.7) K/mm3 Lymphocytes # (Manual) (1.2-5.4) K/mm3 VBG pH (7.320-7.420) Sodium (137-145) mmol/L Potassium (3.6-5.0) mmol/L Chloride (98-107) mmol/L Carbon Dioxide (22-30) mmol/L BUN (9-20) mg/dL Creatinine (0.8-1.5) mg/dL Glucose (75-100) mg/dL POC Glucose 182 H 138 H 120 H (70-105) Phosphorus (2.5-4.5) mg/dL Magnesium (1.7-2.3) mg/dL Alkaline Phosphatase (35-129) units/L CK-MB (CK-2) Rel Index (0-4) Total Protein (6.3-8.2) g/dL 08/27/18 08/27/18 08/27/18 Range/Units 07:35 08:30 09:16 WBC (4.5-11.0) K/mm3 RBC (3.65-5.03) M/mm3 Hgb (11.8-15.2) gm/dl Hct (35.5-45.6) % MCV (84-94) fl Seg Neuts % (Manual) (40.0-70.0) % Lymphocytes % (Manual) (13.4-35.0) % Seg Neutrophils # Man (1.8-7.7) K/mm3 Lymphocytes # (Manual) (1.2-5.4) K/mm3 VBG pH (7.320-7.420) Sodium (137-145) mmol/L Potassium (3.6-5.0) mmol/L Chloride 60.0 L (98-107) mmol/L Carbon Dioxide 20 L D 20 L (22-30) mmol/L BUN 46 H 43 H (9-20) mg/dL Creatinine 1.6 H 1.6 H (0.8-1.5) mg/dL Glucose 116 H 153 H (75-100) mg/dL POC Glucose 132 H (70-105) Phosphorus (2.5-4.5) mg/dL Magnesium (1.7-2.3) mg/dL Alkaline Phosphatase (35-129) units/L CK-MB (CK-2) Rel Index (0-4) Total Protein (6.3-8.2) g/dL 08/27/18 08/27/18 08/27/18 Range/Units 09:45 10:46 11:40 WBC (4.5-11.0) K/mm3 RBC (3.65-5.03) M/mm3 Hgb (11.8-15.2) gm/dl Hct (35.5-45.6) % MCV (84-94) fl Seg Neuts % (Manual) (40.0-70.0) % Lymphocytes % (Manual) (13.4-35.0) % Seg Neutrophils # Man (1.8-7.7) K/mm3 Lymphocytes # (Manual) (1.2-5.4) K/mm3 VBG pH (7.320-7.420) Sodium (137-145) mmol/L Potassium (3.6-5.0) mmol/L Chloride (98-107) mmol/L Carbon Dioxide (22-30) mmol/L BUN (9-20) mg/dL Creatinine (0.8-1.5) mg/dL Glucose (75-100) mg/dL POC Glucose 170 H 149 H 144 H (70-105) Phosphorus (2.5-4.5) mg/dL Magnesium (1.7-2.3) mg/dL Alkaline Phosphatase (35-129) units/L CK-MB (CK-2) Rel Index (0-4) Total Protein (6.3-8.2) g/dL 08/27/18 Range/Units 12:42 WBC (4.5-11.0) K/mm3 RBC (3.65-5.03) M/mm3 Hgb (11.8-15.2) gm/dl Hct (35.5-45.6) % MCV (84-94) fl Seg Neuts % (Manual) (40.0-70.0) % Lymphocytes % (Manual) (13.4-35.0) % Seg Neutrophils # Man (1.8-7.7) K/mm3 Lymphocytes # (Manual) (1.2-5.4) K/mm3 VBG pH (7.320-7.420) Sodium (137-145) mmol/L Potassium (3.6-5.0) mmol/L Chloride (98-107) mmol/L Carbon Dioxide (22-30) mmol/L BUN (9-20) mg/dL Creatinine (0.8-1.5) mg/dL Glucose (75-100) mg/dL POC Glucose 155 H (70-105) Phosphorus (2.5-4.5) mg/dL Magnesium (1.7-2.3) mg/dL Alkaline Phosphatase (35-129) units/L CK-MB (CK-2) Rel Index (0-4) Total Protein (6.3-8.2) g/dL - Imaging and Cardiology Chest x-ray: image reviewed (clear) Assessment and Plan 42 y/o male admitted with DKA 1. [place] gap is 17. Next lab draw at 1400. most likely gap will be closed. Suggest calculating total insulin and starting BID NPH 2. Feed dinner 3. Transfer out of unit once last BMP comes back. CCt 31 minutes.
[2018-08-27 15:23] LABS: Calcium 8.2 mg/dL (8.4-10.2)
[2018-08-27] MEDS ORDERED: D50W (25GM) Syringe IV PRN (15:35)
[2018-08-27] MEDS: HumaLOG SUB-Q SCH (16:28)
[2018-08-27] MEDS: NACL 0.9% 1000 ML 1,000 ML IV SCH (17:22)
[2018-08-27 19:56] LABS: BUN/Creatinine Ratio 23; Blood Urea Nitrogen 28 mg/dL (9-20); Calcium 8.3 mg/dL (8.4-10.2); Hemolysis Index 4
[2018-08-28] MEDS: KCL 10MEQ/100ML 10 MEQ/100 ML BAG IV SCH ×2 (00:02→01:40)
[2018-08-28] MEDS: LANTUS SUB-Q SCH ×3 (00:06→22:44)
[2018-08-28] MEDS: SODIUM CHLORIDE FLUSH SYRINGE 10 ML IV SCH ×3 (00:07→22:44)
[2018-08-28] MEDS: HumaLOG SUB-Q SCH ×5 (00:18→22:43)
[2018-08-28] MEDS: NACL 0.9% 1000 ML 1,000 ML IV SCH ×2 (06:02→14:25)
[2018-08-28] MEDS: HEPARIN SUB-Q SCH ×4 (06:11→22:02)
[2018-08-28] MEDS: ASPIRIN PO SCH (09:19)
[2018-08-28 10:57] LABS: Hematocrit 36.8 % (35.5-45.6); Hemoglobin 12.6 gm/dl (11.8-15.2); Mean Corpuscular HGB Conc 34 % (32-34); Mean Corpuscular Volume 92 fl (84-94); Platelet Count 225 K/mm3 (140-440); Red Cell Distribution Width 14.1 % (13.2-15.2)
[2018-08-28 11:18] LABS: BUN/Creatinine Ratio 15; Blood Urea Nitrogen 15 mg/dL (9-20); Calcium 7.9 mg/dL (8.4-10.2); Hemolysis Index 65
--- NOTE | 2018-08-28 12:05 | Progress Note ---
Assessment and Plan Assessment and plan: DKA - Was initially admitted to the ICU on DKA protocol, now off Insulin drip On Insulin subcut Severe hyperkalemia Now resolved WILMER -now resolved -Likely vasomotor nephropathy secondary to dehydration -On IV fluid, will monitor creatinine level Chest pain, rule out ACS -On chest pain pathway -consult cardiology. He had a cardiac cath here in 01/25/[address] Vinod De Anda, was essentially normal -Will do stress test in am Hypotension Now resolved SIRS with leukocytosis, tachycardia Leukocytosis with elevated H&H -Likely hemoconcentration due to dehydration -No evidence of acute infection -On IV fluid, will monitor levels Intractable nausea and vomiting -On antiemetics and IV fluid DVT prophylaxis with heparin For stress test in am. may dc home if stress test neg. History Interval history: Patient with DKA, on Insulin drip, iv fluids Chest pain on and off Hospitalist Physical - Physical exam Narrative exam: Gen: Not in acute distress, lying in bed, HEENT: Normocephalic, atraumatic Neck: supple, no JVD Heart: S1 and S2 reg, no murmurs, rubs or gallop Lungs: Clear, no crackles, no wheeze Abd: soft, non tender, non distended, normal BS Ext: No edema, no clubbing, no cyanosis, Neuro: AAO x 3, moves all ext, non focal Psych:Normal mood - Constitutional Vitals: Temp Pulse Resp BP Pulse Ox 98.1 F 80 24 114/68 97 08/28/18 05:21 08/28/18 05:21 08/28/18 05:21 08/28/18 05:21 08/28/18 05:21 General appearance: Present: no acute distress, well-nourished Results - Labs CBC & Chem 7: 08/28/18 10:11 08/28/18 10:11 Labs: Laboratory Last Values WBC 7.4 K/mm3 (4.5-11.0) 08/28/18 10:11 RBC 4.00 M/mm3 (3.65-5.03) 08/28/18 10:11 Hgb 12.6 gm/dl (11.8-15.2) D 08/28/18 10:11 Hct 36.8 % (35.5-45.6) D 08/28/18 10:11 MCV 92 fl (84-94) 08/28/18 10:11 MCH 32 pg (28-32) 08/28/18 10:11 MCHC 34 % (32-34) 08/28/18 10:11 RDW 14.1 % (13.2-15.2) 08/28/18 10:11 Plt Count 225 K/mm3 (140-440) 08/28/18 10:11 Add Manual Diff Complete 08/26/18 17:05 Total Counted 100 08/26/18 17:05 Seg Neutrophils % Manager Endoscopy 08/26/18 17:05 Seg Neuts % (Manual) 97.0 % (40.0-70.0) H 08/26/18 17:05 0 % 08/26/18 17:05 2.0 % (13.4-35.0) L 08/26/18 17:05 Reactive Lymphs % (Man) 0 % 08/26/18 17:05 1.0 % (0.0-7.3) 08/26/18 17:05 0 % (0.0-4.3) 08/26/18 17:05 0 % (0.0-1.8) 08/26/18 17:05 0 % 08/26/18 17:05 0 % 08/26/18 17:05 0 % 08/26/18 17:05 0 % 08/26/18 17:05 Nucleated RBC % Not Reportable 08/26/18 17:05 Seg Neutrophils # Man 13.3 K/mm3 (1.8-7.7) H 08/26/18 17:05 Band Neutrophils # 0.0 K/mm3 08/26/18 17:05 0.3 K/mm3 (1.2-5.4) L 08/26/18 17:05 Abs React Lymphs (Man) 0.0 K/mm3 08/26/18 17:05 0.1 K/mm3 (0.0-0.8) 08/26/18 17:05 0.0 K/mm3 (0.0-0.4) 08/26/18 17:05 0.0 K/mm3 (0.0-0.1) 08/26/18 17:05 0.0 K/mm3 08/26/18 17:05 0.0 K/mm3 08/26/18 17:05 0.0 K/mm3 08/26/18 17:05 Blast Cells # 0.0 K/mm3 08/26/18 17:05 WBC Morphology Not Reportable 08/26/18 17:05 Hypersegmented Neuts Not Reportable 08/26/18 17:05 Hyposegmented Neuts Not Reportable 08/26/18 17:05 Hypogranular Neuts Not Reportable 08/26/18 17:05 Not Reportable 08/26/18 17:05 Not Reportable 08/26/18 17:05 Not Reportable 08/26/18 17:05 Not Reportable 08/26/18 17:05 Not Reportable 08/26/18 17:05 Not Reportable 08/26/18 17:05 Appears normal 08/26/18 17:05 Not Reportable 08/26/18 17:05 Plt Clumps, EDTA Not Reportable 08/26/18 17:05 Not Reportable 08/26/18 17:05 Not Reportable 08/26/18 17:05 Not Reportable 08/26/18 17:05 Plt Morphology Comment Not Reportable 08/26/18 17:05 RBC Morphology Normal 08/26/18 17:05 Dimorphic RBCs Not Reportable 08/26/18 17:05 Not Reportable 08/26/18 17:05 Not Reportable 08/26/18 17:05 Not Reportable 08/26/18 17:05 Not Reportable 08/26/18 17:05 Not Reportable 08/26/18 17:05 Not Reportable 08/26/18 17:05 Not Reportable 08/26/18 17:05 Not Reportable 08/26/18 17:05 Not Reportable 08/26/18 17:05 Not Reportable 08/26/18 17:05 Not Reportable 08/26/18 17:05 Not Reportable 08/26/18 17:05 Not Reportable 08/26/18 17:05 Not Reportable 08/26/18 17:05 Not Reportable 08/26/18 17:05 Not Reportable 08/26/18 17:05 Not Reportable 08/26/18 17:05 Not Reportable 08/26/18 17:05 Not Reportable 08/26/18 17:05 Acanthocytes (Spur) Not Reportable 08/26/18 17:05 Rouleaux Not Reportable 08/26/18 17:05 Not Reportable 08/26/18 17:05 Not Reportable 08/26/18 17:05 Not Reportable 08/26/18 17:05 Not Reportable 08/26/18 17:05 Hem Pathologist Commnt No 08/26/18 17:05 VBG pH 7.190 (7.320-7.420) L* 08/26/18 17:05 Sodium 135 mmol/L (137-145) L 08/28/18 10:11 Potassium 3.8 mmol/L (3.6-5.0) 08/28/18 10:11 Chloride 101.1 mmol/L (98-107) 08/28/18 10:11 Carbon Dioxide 23 mmol/L (22-30) 08/28/18 10:11 15 mmol/L 08/28/18 10:11 BUN 15 mg/dL (9-20) 08/28/18 10:11 1.0 mg/dL (0.8-1.5) 08/28/18 10:11 Estimated GFR > 60 ml/min 08/28/18 10:11 15 % 08/28/18 10:11 Glucose 173 mg/dL (75-100) H 08/28/18 10:11 POC Glucose 154 (70-105) H 08/28/18 07:42 12.0 % (4-6) H 08/27/18 16:02 Calcium 7.9 mg/dL (8.4-10.2) L 08/28/18 10:11 Phosphorus 6.60 mg/dL (2.5-4.5) H 08/26/18 19:17 Magnesium 2.50 mg/dL (1.7-2.3) H 08/26/18 19:17 0.50 mg/dL (0.1-1.2) 08/26/18 17:05 AST 19 units/L (5-40) 08/26/18 17:05 ALT 15 units/L (7-56) 08/26/18 17:05 173 units/L (35-129) H 08/26/18 17:05 59 units/L (55-170) 08/26/18 17:05 CK-MB (CK-2) 3.2 ng/mL (0.0-4.0) 08/26/18 17:05 CK-MB (CK-2) Rel Index 5.4 (0-4) H 08/26/18 17:05 < 0.010 ng/mL (0.00-0.029) 08/27/18 07:35 8.6 g/dL (6.3-8.2) H 08/26/18 17:05 4.3 g/dL (3.9-5) 08/26/18 17:05 1.0 % 08/26/18 17:05 42 units/L (13-60) 08/26/18 17:05 Straw (Yellow) 08/26/18 18:50 Clear (Clear) 08/26/18 18:50 5.0 (5.0-7.0) 08/26/18 18:50 Ur Specific [place] 1.021 (1.003-1.030) 08/26/18 18:50 <15 mg/dl mg/dL (Negative) 08/26/18 18:50 >=500 mg/dL (Negative) 08/26/18 18:50 80 mg/dL (Negative) 08/26/18 18:50 Neg (Negative) 08/26/18 18:50 Neg (Negative) 08/26/18 18:50 Neg (Negative) 08/26/18 18:50 < 2.0 mg/dL (<2.0) 08/26/18 18:50 Ur Leukocyte Esterase Neg (Negative) 08/26/18 18:50 < 1.0 /HPF (0.0-6.0) 08/26/18 18:50 < 1.0 /HPF (0.0-6.0) 08/26/18 18:50 Few /HPF 08/26/18 18:50 Active Medications - Current Medications Current Medications: Generic Name Dose Route Start Last Admin Trade Name Freq PRN Reason Stop Dose Admin Acetaminophen 650 mg 08/26/18 21:27 Tylenol PO Q4H PRN Pain MILD(1-3)/Fever >100.5/CHE Aspirin 325 mg 08/27/18 10:00 08/28/18 09:19 Aspirin PO 325 mg QDAY VIELKA Administration Dextrose 0 ml 08/26/18 18:01 D50w (25gm) Syringe IV ONCE PRN Hypoglycemia Dextrose 50 ml 08/27/18 15:35 D50w (25gm) Syringe IV PRN PRN Hypoglycemia Heparin Sodium (Porcine) 5,000 unit 08/27/18 06:00 08/28/18 06:11 Heparin SUB-Q 5,000 unit Q8HR VIELKA Administration Sodium Chloride 1,000 mls @ 100 mls/hr 08/27/18 16:00 08/28/18 06:02 Nacl 0.9% 1000 Ml IV 100 mls/hr DIRECT VIELKA Administration Insulin Glargine 40 units 08/27/18 22:00 08/28/18 10:14 Lantus SUB-Q 40 units BID VIELKA Administration Insulin Human Lispro 0 unit 08/27/18 16:30 08/28/18 09:18 Humalog SUB-Q 3 unit AC VIELKA Administration Protocol Insulin Human Lispro 0 unit 08/27/18 22:00 08/28/18 00:18 Humalog SUB-Q 6 unit QHS VIELKA Administration Protocol Morphine Sulfate 2 mg 08/26/18 21:27 Morphine IV Q4H PRN Pain , Severe (7-10) Ondansetron HCl 4 mg 08/26/18 23:18 Zofran IV Q4H PRN Nausea And Vomiting Oxycodone/Acetaminophen 1 tab 08/26/18 21:27 08/27/18 09:39 Percocet 5/325 PO 1 tab Q6H PRN Administration Pain, Moderate (4-6) Promethazine HCl 25 mg 08/26/18 23:18 Phenergan IA Q6H PRN Nausea And Vomiting Sodium Chloride 10 ml 08/26/18 22:00 08/28/18 00:07 Sodium Chloride Flush Syringe 10 Ml IV 10 ml BID VIELKA Administration Sodium Chloride 10 ml 08/26/18 21:27 Sodium Chloride Flush Syringe 10 Ml IV PRN PRN LINE FLUSH
[2018-08-29 05:43] LABS: BUN/Creatinine Ratio 14; Blood Urea Nitrogen 11 mg/dL (9-20); Calcium 8.5 mg/dL (8.4-10.2); Hemolysis Index 5
[2018-08-29] MEDS: HEPARIN SUB-Q SCH ×2 (06:00→16:57)
[2018-08-29] MEDS: HumaLOG SUB-Q SCH ×3 (07:30→18:25)
[2018-08-29] MEDS ORDERED: LEXISCAN IV ONE ×2 (07:34→07:43)
[2018-08-29] MEDS: ASPIRIN PO SCH (12:59)
[2018-08-29] MEDS: SODIUM CHLORIDE FLUSH SYRINGE 10 ML IV SCH (13:00)
--- NOTE | 2018-08-29 14:07 | Consultation ---
History of Present Illness Consult date: 08/29/18 Consult reason: chest pain History of present illness: 42-year-old man who presented to the hospital with uncontrolled diabetes. In the emergency room, his blood sugar was over 700, sodium was 124, CO2 was only 7, consistent with diabetic ketoacidosis. With a hospital management, his blood sugar is down to the 200s. Cardiology consultation is requested for chest pain assessment, apparently patient reported occasional chest pain on review of systems. Today he presented for thallium stress test ordered by the medical service. Patient's hCG is in normal sinus rhythm, normal ECG. A Lexiscan thallium stress test was normal, with left ventricular ejection fraction 63% on gated SPECT. Past History Past Medical History: diabetes, hypertension, other (diabetic neuropathy) Past Surgical History: Other (right arm surgery) Social history: smoking (patient has 10 years history of cigarette smoking. He currently smokes a pack every few days. He denies alcohol or illicit drug use) Family history: CAD (father had heart attack in his 60s), diabetes (aunt), hypertension (father) Medications and Allergies Allergies Allergy/AdvReac Type Severity Reaction Status Date / Time No Known Allergies Allergy Unverified 01/11/18 02:12 Home Medications Medication Instructions Recorded Confirmed Last Taken Type Insulin Glargine [Lantus] 40 unit SUB-Q QHS 08/26/18 08/28/18 Unknown History Insulin Regular, Human [Humulin R] 1 dose SQ ACHS 08/26/18 08/26/18 Unknown History HumuLIN 70-30 Vial 10 units SQ QAM 08/28/18 08/28/18 Unknown History Active Meds: Active Medications Acetaminophen (Tylenol) 650 mg PO Q4H PRN PRN Reason: Pain MILD(1-3)/Fever >100.5/CHE Aspirin (Aspirin) 325 mg PO QDAY [facility] Last Admin: 08/29/18 12:59 Dose: 325 mg Documented by: Dextrose (D50w (25gm) Syringe) 50 ml IV PRN PRN PRN Reason: Hypoglycemia Heparin Sodium (Porcine) (Heparin) 5,000 unit SUB-Q Q8HR [facility] Last Admin: 08/29/18 06:00 Dose: 5,000 unit Documented by: Sodium Chloride (Nacl 0.9% 1000 Ml) 1,000 mls @ 100 mls/hr IV DIRECT VIELKA Last Admin: 08/28/18 14:25 Dose: 100 mls/hr Documented by: Insulin Glargine (Lantus) 40 units SUB-Q QHS [facility] Insulin Human Lispro (Humalog) 0 unit SUB-Q AC [facility]; Protocol Last Admin: 08/29/18 12:59 Dose: 6 unit Documented by: Insulin Human Lispro (Humalog) 0 unit SUB-Q QHS [facility]; Protocol Last Admin: 08/28/18 22:43 Dose: Not Given Documented by: Morphine Sulfate (Morphine) 2 mg IV Q4H PRN PRN Reason: Pain , Severe (7-10) Ondansetron HCl (Zofran) 4 mg IV Q4H PRN PRN Reason: Nausea And Vomiting Oxycodone/Acetaminophen (Percocet 5/325) 1 tab PO Q6H PRN PRN Reason: Pain, Moderate (4-6) Last Admin: 08/27/18 09:39 Dose: 1 tab Documented by: Promethazine HCl (Phenergan) 25 mg MT Q6H PRN PRN Reason: Nausea And Vomiting Sodium Chloride (Sodium Chloride Flush Syringe 10 Ml) 10 ml IV BID [facility] Last Admin: 08/29/18 13:00 Dose: 10 ml Documented by: Sodium Chloride (Sodium Chloride Flush Syringe 10 Ml) 10 ml IV PRN PRN PRN Reason: LINE FLUSH Review of Systems Cardiovascular: chest pain, no orthopnea, no palpitations, no rapid/irregular heart beat, no edema, no syncope, no lightheadedness, no shortness of breath Physical Examination Vital Signs Temp 97.8 F 08/26/18 16:00 General appearance: no acute distress HEENT: Positive: PERRL Neck: Positive: neck supple Cardiac: Positive: Reg Rate and Rhythm Lungs: Positive: clear to auscultation Neuro: Positive: Grossly Intact Abdomen: Positive: Soft Male genitourinary: Positive: deferred Skin: Positive: Clear Extremities: Absent: edema Results 08/28/18 10:11 08/29/18 05:04 Comprehensive Metabolic Panel 08/29/18 Range/Units 05:04 Sodium 137 (137-145) mmol/L Potassium 3.7 (3.6-5.0) mmol/L Chloride 101.2 (98-107) mmol/L Carbon Dioxide 27 (22-30) mmol/L BUN 11 (9-20) mg/dL Creatinine 0.8 (0.8-1.5) mg/dL Glucose 107 H (75-100) mg/dL Calcium 8.5 (8.4-10.2) mg/dL EKG interpretations - Telemetry EKG Rhythm: Sinus Rhythm Assessment and Plan - Patient Problems (1) Chest pain Current Visit: Yes Status: Acute Plan to address problem: The patient presented with diabetic ketoacidosis. The chest pain reported on review of systems is atypical. ECG was normal, and the cardiac troponin levels are normal. Today, he underwent a Lexiscan thallium stress test which was normal. No further cardiac workup is indicated, will follow on a when necessary basis.
--- NOTE | 2018-08-29 17:50 | Discharge Summary ---
Providers - Providers Date of Admission: 08/26/18 21:27 Date of discharge: 08/29/18 Attending physician: GINGER GORDILLO Cardiology [facility] Condition: Fair Pertinent studies: Lexiscan negative echocardiogram ejection fraction 63% Hospital course: She had 42-year-old male with uncontrolled diabetes presented in DKA was transferred to the ICU placed back on Symlin has been noncompliant with medications. Patient's blood sugar was controlled via insulin. Will be discharged home on same dosage. Patient had episode of atypical chest pain and had negative Lexiscan normal cardiac isoenzymes normal echocardiogram was stable for discharge. Upon discharge patient complained about area where he shaved his pubic hair. Head developed pseudofolliculitis will give antibiotics by mouth but this can be done on outpatient basis. Patient follow-up with primary care physician in 3-5 days. Disposition: - TO HOME OR SELFCARE - Discharge Diagnoses (1) DKA (diabetic ketoacidoses) Status: Resolved Comment: Discharge with 40 units of Lantus (2) WILMER (acute kidney injury) Status: Acute Comment: Resolved secondary to vasomotor nephropathy. (3) Hyperkalemia Status: Acute Comment: All. resolved (4) Chest pain Status: Acute Comment: Atypical chest pain noncardiac most likely secondary to DKA. Core Measure Documentation - Palliative Care Palliative Care/ Comfort Measures: Not Applicable - Core Measures Any of the following diagnoses?: none Exam - Constitutional Vitals: Temp Pulse Resp BP Pulse Ox 98.0 F 83 19 120/58 98 08/29/18 11:34 08/29/18 11:34 08/29/18 11:34 08/29/18 11:34 08/29/18 11:34 General appearance: Present: no acute distress, well-nourished - EENT Eyes: Present: PERRL ENT: hearing intact, clear oral mucosa - Neck Neck: Present: supple, normal ROM - Respiratory Respiratory effort: normal Respiratory: bilateral: CTA - Cardiovascular Heart Sounds: Present: S1 & S2. Absent: rub, click - Extremities Extremities: pulses symmetrical, No edema Peripheral Pulses: within normal limits - Abdominal General gastrointestinal: Present: soft, non-tender, non-distended, normal bowel sounds Male genitourinary: Present: normal - Integumentary Integumentary: Present: clear, warm, dry - Musculoskeletal Musculoskeletal: strength equal bilaterally, other (small pustules around pubic hair) - Psychiatric Psychiatric: appropriate mood/affect, intact judgment & insight - Neurologic Neurologic: CNII-XII intact, moves all extremities Plan Activity: no restrictions Diet: diabetic Special Instructions: record blood sugar diary, smoking cessation [facility] JESSICA [Primary Care Provider] - 3-5 Days Prescriptions: Sulfamethoxazole/Trimethoprim [Bactrim DS TAB] 1 each PO BID #20 tablet HumuLIN 70-30 Vial 10 units SQ QAM #7 Insulin Regular, Human [Humulin R] 1 dose SQ ACHS #7 vial Insulin Glargine [Lantus VIAL] 40 units SUB-Q QHS #7 units Insulin Glargine [Lantus VIAL] 40 unit SUB-Q QHS #7 units oxyCODONE /ACETAMINOPHEN [Percocet 5/325 mg] 1 tab PO Q6H PRN #14 tablet PRN Reason: Pain, Moderate (4-6)
[2018-08-29 19:14] VITALS: BP 121/60
[2018-08-29] MEDS ORDERED: HumaLOG SUB-Q ONE (21:00)
[2018-08-29] MEDS ORDERED: LANTUS SUB-Q SCH (22:00)
--- NOTE | 2018-08-29 23:55 | Treadmill Report ---
THALLIUM STRESS TEST LEFT VENTRICLE: Left ventricular chamber size is within normal spread. Perfusion study demonstrates homogeneous uptake of the tracer in all segments, no significant defects identified. Gated analysis demonstrates normal left ventricular systolic function, ejection fraction of 63%. CONCLUSION: Normal myocardial perfusion study. JOB# [id number] CA/NTS
== END 2018-08-29 21:00 | disposition home or self-care (01) | DRG 637 ==
LOC: ED 15:56 → CC1 21:27 → 3A 08-27 20:06
PROVIDERS: ADMIT Internal Medicine; ATTEND Internal Medicine
DX: E11.10 Type 2 diabetes mellitus with ketoacidosis without coma (principal); N17.0 Acute kidney failure with tubular necrosis; R65.10 Systemic inflammatory response syndrome (SIRS) of non-infectious origin without acute organ dysfunction; F17.200 Nicotine dependence, unspecified, uncomplicated; Z79.4 Long term (current) use of insulin; R07.89 Other chest pain; I10 Essential (primary) hypertension; Z83.3 Family history of diabetes mellitus; Z82.49 Family history of ischemic heart disease and other diseases of the circulatory system; E11.40 Type 2 diabetes mellitus with diabetic neuropathy, unspecified; E87.5 Hyperkalemia; I95.9 Hypotension, unspecified; D72.829 Elevated white blood cell count, unspecified
CPT/HCPCS: 36415; 71045; 78452; 80048; 80053; 81001; 82550; 82553; 82805; 82947; 82962; 83036; 83690; 83735; 84100; 84484; 85007; 85025; 85027; 93005; 93010; 93017; 96361; 96374; 96375; G0378; A9502; J1644; J1815; J2405; J2765; J2785; J3010; J3480; J7030